=== PATIENT | female | born 1980 | race Caucasian/White ===

== ENCOUNTER → 2018-02-02 | Outpatient (CLI) | payer BC ==
--- NOTE | 2018-02-02 09:38 | KCIC ---
MRI Brain without contrast History: Seizures, new right occipital mastoid pain Technique: Multiplanar, multisequential noncontrast MR imaging was performed of the brain. Contrast: None Comparison: None Findings: There is no evidence of recent infarct or cytotoxic edema. The ventricles, sulci, and cisterns are within normal limits in size and configuration. There is no significant midline shift, intraaxial mass effect, or focal abnormal extra-axial fluid collection. There is no significant signal abnormality of the brain parenchyma. There is preservation of the major intracranial flow-voids at the skull base. Hippocampal formations are symmetric in size and signal characteristics. The mastoid air cells are aerated. There is very mild cerebellar tonsillar ectopia projecting 2 to 3 mm inferior to the foramen magnum. There is no significant abnormality of the pineal gland or pituitary gland. There is mild right greater than left maxillary sinus mucosal thickening, mild right sphenoid and left frontal sinus and patchy [id number] ethmoid air cell mucosal thickening. There is nonspecific heterogeneity of the marrow of the nonexpanded clivus which may be due to residual red marrow. Impression: 1. There is no significant intracranial abnormality. 2. There is paranasal sinus mucosal thickening as stated greatest of the ethmoid air cells. Electronically signed by: Galindo Frias MD (02/02/2018 9:34 AM) [email or web address]
== END | disposition home or self-care (01) ==
LOC: KCIC MRI 08:12
PROVIDERS: ATTEND Family Medicine
DX: G43.909 Migraine, unspecified, not intractable, without status migrainosus (principal); J34.89 Other specified disorders of nose and nasal sinuses
CPT/HCPCS: 70551

== ENCOUNTER → 2019-05-03 | Outpatient (CLI) | payer BC ==
--- NOTE | 2019-05-03 10:36 | KCIC ---
ABDOMEN LTD History: Right upper quadrant abdominal pain Comparison: None. Findings: Multiple sonographic images of the abdomen are submitted. Exam is limited due to patient's body habitus. Pancreas is not well-visualized. There is segmental visualization of the inferior vena cava near the liver although otherwise not entirely visualized. Right kidney measured 11.1 x 4.7 x 4.4 cm without hydronephrosis, entirety of the right renal parenchyma not well-visualized. Gallbladder is present without demonstrable intraluminal abnormality, wall thickening, or pericholecystic fluid. Common bile duct is within normal limits at 0.3 cm. Hepatic echotexture is considered within normal limits. Right lobe of liver measured 15.1 cm longitudinal. Impression: 1. Exam is limited due to patient's body habitus with limitations as stated, no significant abnormality otherwise demonstrated. Electronically signed by: Galindo Frias MD (05/03/2019 10:33 AM) [id number]
== END | disposition home or self-care (01) ==
LOC: KCIC US 07:39
PROVIDERS: ATTEND Family Medicine
DX: R10.11 Right upper quadrant pain (principal); Z23 Encounter for immunization
CPT/HCPCS: 76705

== ENCOUNTER → 2020-01-03 | Outpatient (CLI) | payer BC ==
--- NOTE | 2020-01-03 16:07 | KCIC ---
3 views the right ankle without comparison for ankle pain for 2 weeks, plantar fasciitis. FINDINGS: There is no fracture, dislocation, or acute osseous abnormality identified. Small calcaneal bone spur is noted as is a calcaneal enthesophyte. No significant degenerative changes of the ankle joints. IMPRESSION: 1. No acute osseous abnormality. Electronically signed by: Efrain Eldridge MD (01/03/2020 4:04 PM) [id number]
== END ==
LOC: KCIC 13:16
PROVIDERS: ATTEND Family Medicine
DX: M77.31 Calcaneal spur, right foot (principal)
CPT/HCPCS: 73610